=== PATIENT | female | born 1995 | race Caucasian/White ===

== ENCOUNTER → 2016-12-15 | Outpatient (CLI) | payer BC ==
--- NOTE | 2016-12-15 13:38 | CR ---
EXAMINATION: Cervical spine HISTORY: Pain COMPARISON: CT dated 03/25/2016 TECHNIQUE: AP and lateral views FINDINGS/IMPRESSION: The cervical spinal alignment appears normal and the vertebral body heights and disc spaces appear well-maintained. No fracture or acute osseous abnormality. The prevertebral soft tissues appear normal.
== END ==
LOC: MW.CHFP 09:48
PROVIDERS: ATTEND Physician Assistant
DX: M54.2 Cervicalgia (principal)
CPT/HCPCS: 36415; 72040; 72040-26; 85025; 85652

== ENCOUNTER → 2016-12-23 | Outpatient (CLI) | payer BC ==
--- NOTE | 2016-12-23 12:49 | MR ---
EXAMINATION: MR of the head without contrast. TECHNIQUE: Multiplanar multisequence imaging of the head without intravenous contrast. Diffusion génesis ghted sequences were performed. HISTORY: Allergic rhinitis. FINDINGS: The cerebral hemispheres and deep nuclei are without hemorrhage, mass, edema or atrophy. No evidenc e for restricted diffusion. No extraaxial collections or hemorrhage. 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 Ventricular system is of normal size and configuration without hydrocephalus. Brainstem and cerebel lum are without hemorrhage, mass, edema, gliosis or atrophy. Carotid basilar artery flow voids are intact. The otomastoid airspaces are clear. No internal auditory canal or cerebellopontine angle masses. T he paranasal sinuses are clear. Craniocervical junction is unremarkable. IMPRESSION: 1. No acute intracranial findings. 2. 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 3. No significant paranasal sinus disease.
== END ==
LOC: MW.MRI 08:33
PROVIDERS: ATTEND Anesthesiology
DX: J30.9 Allergic rhinitis, unspecified (principal); M79.1 Myalgia; G93.0 Cerebral cysts
CPT/HCPCS: 70551; 70551-26

== ENCOUNTER → 2017-02-26 | Outpatient (CLI) | payer BC | LOC: MW.CHFP 12:47 | PROVIDERS: ATTEND Student in an Organized Health Care Education/Training Program | DX: J02.9 Acute pharyngitis, unspecified (principal) | CPT/HCPCS: 87081; 87880 ==

== ENCOUNTER 2018-06-30 15:18 | Emergency (ER) | payer BC ==
[2018-06-30] MEDS ORDERED: Sodium Chloride 0.9% 10 ML Syringe FLUSH PRN (15:31)
[2018-06-30] MEDS ORDERED: Sodium Chloride 0.9% 2.5 ML Syringe FLUSH PRN (15:31)
--- NOTE | 2018-06-30 15:35 | EDM.PDOC ---
ED HPI GENERAL MEDICAL PROBLEM - General Chief Complaint: General Stated Complaint: SICK Time Seen by Provider: 06/30/18 15:34 Source of Information: Reports: Patient History Limitations: Reports: No Limitations - History of Present Illness INITIAL COMMENTS - FREE TEXT/NARRATIVE: HISTORY AND PHYSICAL: [] 23-year-old female presenting with not feeling well History of Present Illness: []Patient had a sore throat when she awakened today, feeling worse throughout the day went to a walk-in clinic She states that the strep test was negative. She has photophobia, headache, neck feels stiff. Review of Systems: As per history of present illness and below otherwise all systems reviewed and negative. Past medical history: As per history of present illness and as reviewed below otherwise noncontributory. Surgical history: As per history of present illness and as reviewed below otherwise noncontributory. Social history: No reported history of drug or alcohol abuse. Family history: As per history of present illness and as reviewed below otherwise noncontributory. Physical exam: Patient is having difficulty moving her chin to her chest or with examination she is relaxing and easily manipulated [id number] chest HEENT: Atraumatic, normocehpalic, pupils reactive, negative for conjunctival pallor or scleral icterus, mucous membranes moist, throat clear, neck supple, nontender, trachea midline. Lungs: Clear to auscultation, breath sounds equal bilaterally, chest non tender. Heart: S1S2, regular, negative for clicks, rubs, or JVD. Abdomen: Soft, nondistended, nontender. Negative for masses or hepatossplenmegaly. Negative for costovertebral tenderness. Pelvis: Stable nontender. Genitourinary: Deferred. Rectal: Deferred Extremities: Atraumatic, negative for cords or calf pain. Neurovascular unremarkable. Neuro: Awake, alert, oriented. Cranial nerves II through XII unremarkable. Cerebellum unremarkable. Motor and sensory unremarkable throughout. Exam nonfocal. Dr. Frank has kindly reevaluated this patient. Have discussed all the results of the laboratory values there is nothing that is remarkable. Patient does look improved since having the fluids Diagnostics: []CBC CMP lactate UA hCG and drug screen blood cultures Therapeutics: []1 L normal saline Morphine Zofran Impression: []Viral syndrome Plan: []Discharge Return to the emergency department should symptoms worsen Zofran ODT 3 times a day when necessary nausea Follow-up with your primary care provider in the next 3 days Definitive disposition and diagnosis as appropriate pending reevaluation and review of above. Onset: Today, Sudden Duration: Hour(s): Location: Reports: Head, Neck, Generalized Quality: Reports: Ache Severity: Moderate Improves with: Reports: None Worsens with: Reports: None Associated Symptoms: Reports: No Other Symptoms Bilateral Back Pain Score (Numeric/FACES): 10 - Related Data Allergies Allergy/AdvReac Type Severity Reaction Status Date / Time Iodine and Iodide Containing Allergy Severe Anaphylactic Verified 06/30/18 15:19 Produc Shock latex Allergy Itching Verified 06/30/18 15:19 Home Meds: Home Meds Dextroamphetamine/Amphetamine [Adderall 20 mg Tablet] 20 mg PO DAILY 08/08/14 [ History] Ondansetron [Zofran ODT] 4 mg PO Q6H PRN #12 tab.dis 06/30/18 [Rx] Past Medical History HEENT History: Reports: None Cardiovascular History: Reports: None Respiratory History: Reports: None Gastrointestinal History: Reports: None Genitourinary History: Reports: None CAT SCAN TECH History: Reports: None Musculoskeletal History: Reports: None Neurological History: Reports: None Psychiatric History: Reports: ADD Endocrine/Metabolic History: Reports: None Hematologic History: Reports: None Oncologic (Cancer) History: Reports: None Dermatologic History: Reports: None - Infectious Disease History Infectious Disease History: Reports: None - Past Surgical History HEENT Surgical History: Reports: Oral Surgery Social & Family History - Family History Family Medical History: Noncontributory - Tobacco Use Smoking Status *Q: Current Some Day Smoker Years of Tobacco use: 5 Packs/Tins Daily: 0.1 - Caffeine Use Caffeine Use: Reports: Energy Drinks - Recreational Drug Use Recreational Drug Use: No ED ROS GENERAL - Review of Systems Review Of Systems: ROS reveals no pertinent complaints other than HPI. ED EXAM, GENERAL - Physical Exam Exam: See Below (see dictation) Course - Vital Signs Last Recorded V/S: Last Vital Signs Temp 36.2 C 06/30/18 15:19 Pulse 142 H 06/30/18 15:19 Resp 21 H 06/30/18 15:19 BP 154/105 H 06/30/18 15:19 Pulse Ox 100 06/30/18 15:19 - Orders/Labs/Meds Orders: Active Orders 24 hr Category Date Time Status Chest 2V [CR] Stat Exams 06/30/18 15:32 Taken CULTURE BLOOD [BC] Stat Lab 06/30/18 15:52 Received CULTURE BLOOD [BC] Stat Lab 06/30/18 15:52 Received CULTURE STREP A CONFIRMATION [RM] Stat Lab 06/30/18 16:15 Results CULTURE URINE [RM] Stat Lab 06/30/18 17:00 Received STREP SCRN A RAPID W CULT CONF [RM] Stat Lab 06/30/18 16:15 Results [facility] [REF] Stat Lab 06/30/18 15:52 Received Ketorolac [Toradol] Med 06/30/18 17:20 Once 30 mg IVPUSH ONETIME ONE Sodium Chloride 0.9% [Saline Flush] Med 06/30/18 15:31 Active 10 ml FLUSH ASDIRECTED PRN Sodium Chloride 0.9% [Saline Flush] Med 06/30/18 15:31 Active 2.5 ml FLUSH ASDIRECTED PRN Blood Culture x2 Reflex Set [OM.PC] Stat Oth 06/30/18 15:31 Ordered Saline Lock Insert [OM.PC] Stat Oth 06/30/18 15:31 Ordered Medication Orders Sodium Chloride (Saline Flush) 10 ml FLUSH ASDIRECTED PRN PRN Reason: Keep Vein Open Last Admin: 06/30/18 16:00 Dose: 10 ml Sodium Chloride (Saline Flush) 2.5 ml FLUSH ASDIRECTED PRN PRN Reason: Keep Vein Open Last Admin: 06/30/18 16:00 Dose: 2.5 ml Labs: Laboratory Tests 06/30/18 06/30/18 06/30/18 Range/Units 15:52 15:52 15:52 WBC 11.09 H (4.0-11.0) K/uL RBC 4.45 (4.30-5.90) M/uL Hgb 14.2 (12.0-16.0) g/dL Hct 41.6 (36.0-46.0) % MCV 93.5 (80.0-98.0) fL MCH 31.9 (27.0-32.0) pg MCHC 34.1 (31.0-37.0) g/dL RDW Std Deviation 43.0 (28.0-62.0) fl RDW Coeff of Maricarmen 13 (11.0-15.0) % Plt Count 231 (150-400) K/uL MPV 10.60 (7.40-12.00) fL Neut % (Auto) 73.4 (48.0-80.0) % Lymph % (Auto) 17.7 (16.0-40.0) % [place] % (Auto) 7.8 (0.0-15.0) % Eos % (Auto) 0.7 (0.0-7.0) % Baso % (Auto) 0.4 (0.0-1.5) % Neut # (Auto) 8.1 H (1.4-5.7) K/uL Lymph # (Auto) 2.0 (0.6-2.4) K/uL [place] # (Auto) 0.9 H (0.0-0.8) K/uL Eos # (Auto) 0.1 (0.0-0.7) K/uL Baso # (Auto) 0.0 (0.0-0.1) K/uL Nucleated RBC % 0.0 /100WBC Nucleated RBCs # 0 K/uL Lactate (0.20-2.00) mmol/L Sodium 138 (136-145) mmol/L Potassium 3.4 L (3.5-5.1) mmol/L Chloride 101 (98-107) mmol/L Carbon Dioxide 27.7 (21.0-32.0) mmol/L BUN 8 (7.0-18.0) mg/dL Creatinine 0.9 (0.6-1.0) mg/dL Est Cr Clr Drug Dosing 89.45 mL/min Estimated GFR (MDRD) > 60.0 ml/min Glucose 104 (74-106) mg/dL Calcium 9.1 (8.5-10.1) mg/dL Total Bilirubin 0.5 (0.2-1.0) mg/dL AST 26 (15-37) IU/L ALT 33 (14-63) IU/L Alkaline Phosphatase 45 L (46-116) U/L Total Protein 7.5 (6.4-8.2) g/dL Albumin 4.0 (3.4-5.0) g/dL Globulin 3.5 (2.0-3.5) g/dL Albumin/Globulin Ratio 1.1 L (1.3-2.8) HCG, Quant mIU/mL Urine Color Urine Appearance Urine pH (5.0-8.0) Ur Specific [place] (1.001-1.035) Urine Protein (NEGATIVE) mg/dL Urine Glucose (UA) (NEGATIVE) mg/dL Urine Ketones (NEGATIVE) mg/dL Urine Occult Blood (NEGATIVE) Urine Nitrite (NEGATIVE) Urine Bilirubin (NEGATIVE) Urine Urobilinogen (<2.0) EU/dL Ur Leukocyte Esterase (NEGATIVE) Urine RBC (0-2/HPF) Urine WBC (0-5/HPF) Ur Epithelial Cells (NONE-FEW) Amorphous Sediment (NEGATIVE) Urine Bacteria (NEGATIVE) Urine Mucus (NONE-MOD) Monoscreen NEGATIVE (NEG) 06/30/18 06/30/18 06/30/18 Range/Units 15:52 15:52 17:00 WBC (4.0-11.0) K/uL RBC (4.30-5.90) M/uL Hgb (12.0-16.0) g/dL Hct (36.0-46.0) % MCV (80.0-98.0) fL MCH (27.0-32.0) pg MCHC (31.0-37.0) g/dL RDW Std Deviation (28.0-62.0) fl RDW Coeff of [place] (11.0-15.0) % Plt Count (150-400) K/uL MPV (7.40-12.00) fL Neut % (Auto) (48.0-80.0) % Lymph % (Auto) (16.0-40.0) % [place] % (Auto) (0.0-15.0) % Eos % (Auto) (0.0-7.0) % Baso % (Auto) (0.0-1.5) % Neut # (Auto) (1.4-5.7) K/uL Lymph # (Auto) (0.6-2.4) K/uL [place] # (Auto) (0.0-0.8) K/uL Eos # (Auto) (0.0-0.7) K/uL Baso # (Auto) (0.0-0.1) K/uL Nucleated RBC % /100WBC Nucleated RBCs # K/uL Lactate 0.7 (0.20-2.00) mmol/L Sodium (136-145) mmol/L Potassium (3.5-5.1) mmol/L Chloride (98-107) mmol/L Carbon Dioxide (21.0-32.0) mmol/L BUN (7.0-18.0) mg/dL Creatinine (0.6-1.0) mg/dL Est Cr Clr Drug Dosing mL/min Estimated GFR (MDRD) ml/min Glucose (74-106) mg/dL Calcium (8.5-10.1) mg/dL Total Bilirubin (0.2-1.0) mg/dL AST (15-37) IU/L ALT (14-63) IU/L Alkaline Phosphatase (46-116) U/L Total Protein (6.4-8.2) g/dL Albumin (3.4-5.0) g/dL Globulin (2.0-3.5) g/dL Albumin/Globulin Ratio (1.3-2.8) HCG, Quant < 1.0 mIU/mL Urine Color YELLOW Urine Appearance CLEAR Urine pH 7.0 (5.0-8.0) Ur Specific [place] 1.015 (1.001-1.035) Urine Protein NEGATIVE (NEGATIVE) mg/dL Urine Glucose (UA) NEGATIVE (NEGATIVE) mg/dL Urine Ketones NEGATIVE (NEGATIVE) mg/dL Urine Occult Blood NEGATIVE (NEGATIVE) Urine Nitrite NEGATIVE (NEGATIVE) Urine Bilirubin NEGATIVE (NEGATIVE) Urine Urobilinogen 0.2 (<2.0) EU/dL Ur Leukocyte Esterase NEGATIVE (NEGATIVE) Urine RBC 0-2 (0-2/HPF) Urine WBC 2-3 (0-5/HPF) Ur Epithelial Cells FEW (NONE-FEW) Amorphous Sediment FEW (NEGATIVE) Urine Bacteria FEW (NEGATIVE) Urine Mucus FEW (NONE-MOD) Monoscreen (NEG) Meds: Medications Generic Name Dose Route Start Last Admin Trade Name Freq PRN Reason Stop Dose Admin Sodium Chloride 10 ml 06/30/18 15:31 06/30/18 16:00 Saline Flush FLUSH 10 ml ASDIRECTED PRN Administration Keep Vein Open Sodium Chloride 2.5 ml 06/30/18 15:31 06/30/18 16:00 Saline Flush FLUSH 2.5 ml ASDIRECTED PRN Administration Keep Vein Open Discontinued Medications Generic Name Dose Route Start Last Admin Trade Name Freq PRN Reason Stop Dose Admin Sodium Chloride 1,000 mls @ 999 mls/hr 06/30/18 15:39 06/30/18 15:59 Normal Saline IV 06/30/18 16:39 999 mls/hr STAT ONE Administration Morphine Sulfate 2 mg 06/30/18 15:43 06/30/18 15:59 Morphine IVPUSH 06/30/18 15:44 2 mg ONETIME ONE Administration Ondansetron HCl 4 mg 06/30/18 15:43 06/30/18 15:59 Zofran IVPUSH 06/30/18 15:44 4 mg ONETIME ONE Administration Departure - Departure Time of Disposition: 17:22 Disposition: Home, Self-Care 01 Condition: Good Clinical Impression: Viral disease - Discharge Information Prescriptions: Ondansetron [Zofran ODT] 4 mg PO Q6H PRN #12 tab.dis PRN Reason: Nausea Instructions: Viral Illness, Adult Referrals: PCP,Unknown [Primary Care Provider] - Forms: ED Department Discharge Additional Instructions: The following information is given to patients seen in the emergency department who are being discharged to home. This information is to outline your options for follow-up care. We provide all patients seen in our emergency department with a follow-up referral. The need for follow-up, as well as the timing and circumstances, are variable depending upon the specifics of your emergency department visit. If you don't have a primary care physician on staff, we will provide you with a referral. We always advise you to contact your personal physician following an emergency department visit to inform them of the circumstance of the visit and for follow-up with them and/or the need for any referrals to a consulting specialist. The emergency department will also refer you to a specialist when appropriate. This referral assures that you have the opportunity for followup care with a specialist. All of these measure are taken in an effort to provide you with optimal care, which includes your followup. Under all circumstances we always encourage you to contact your private physician who remains a resource for coordinating your care. When calling for followup care, please make the office aware that this follow-up is from your recent emergency room visit. If for any reason you are refused follow-up, please contact the [facility] emergency department at and asked to speak to the emergency department charge nurse. You were given Toradol for pain Discharge Return to the emergency department should symptoms worsen Ricardo ODT 3 times a day when necessary nausea Follow-up with your primary care provider in the next 3 days - My Orders Last 24 Hours: My Active Orders 06/30/18 15:31 Sodium Chloride 0.9% [Saline Flush] 10 ml FLUSH ASDIRECTED PRN Sodium Chloride 0.9% [Saline Flush] 2.5 ml FLUSH ASDIRECTED PRN Blood Culture x2 Reflex Set [OM.PC] Stat Saline Lock Insert [OM.PC] Stat 06/30/18 15:32 Chest 2V [CR] Stat 06/30/18 15:52 CULTURE BLOOD [BC] Stat CULTURE BLOOD [BC] Stat [facility] [REF] Stat 06/30/18 16:15 CULTURE STREP A CONFIRMATION [RM] Stat STREP SCRN A RAPID W CULT CONF [RM] Stat 06/30/18 17:00 CULTURE URINE [RM] Stat 06/30/18 17:20 Ketorolac [Toradol] 30 mg IVPUSH ONETIME ONE - Assessment/Plan Last 24 Hours: My Active Orders 06/30/18 15:31 Sodium Chloride 0.9% [Saline Flush] 10 ml FLUSH ASDIRECTED PRN Sodium Chloride 0.9% [Saline Flush] 2.5 ml FLUSH ASDIRECTED PRN Blood Culture x2 Reflex Set [OM.PC] Stat Saline Lock Insert [OM.PC] Stat 06/30/18 15:32 Chest 2V [CR] Stat 06/30/18 15:52 CULTURE BLOOD [BC] Stat CULTURE BLOOD [BC] Stat [facility] [REF] Stat 06/30/18 16:15 CULTURE STREP A CONFIRMATION [RM] Stat STREP SCRN A RAPID W CULT CONF [RM] Stat 06/30/18 17:00 CULTURE URINE [RM] Stat 06/30/18 17:20 Ketorolac [Toradol] 30 mg IVPUSH ONETIME ONE
[2018-06-30] MEDS ORDERED: Sodium Chloride 0.9% 1,000 ML IV ONE (15:39)
[2018-06-30] MEDS ORDERED: Ondansetron 4 MG/2 ML SDV IVPUSH ONE (15:43)
[2018-06-30] MEDS ORDERED: Morphine 2 MG/ML Syringe IVPUSH ONE (15:43)
[2018-06-30 16:37] LABS: CHLORIDE,CL 101 mmol/L (98-107); SODIUM,NA 138 mmol/L (136-145)
[2018-06-30] MEDS ORDERED: Ketorolac 30 MG/ML SDV IVPUSH ONE (17:20)
[2018-06-30 18:32] VITALS: BP 135/91
--- NOTE | 2018-07-01 10:40 | CR ---
EXAM DATE: 06/30/18 PATIENT'S AGE: 23 Patient: CHASE ENAMORADO Facility: [place], [place] Site . Site : 1995 Study: XRay Chest [id number]/12/2018 4:43:09 PM Ordering Physician: Doctor Lewis Final Report: INDICATION: Cold symptoms TECHNIQUE: Chest 2 views. COMPARISON: None. FINDINGS: Cardiovascular and mediastinum: Heart size and vasculature are normal in caliber and appearance. Mediastinum is within normal limits. Lungs and pleural spaces: Lungs are clear. No sign of infiltrate or mass. No sign of pleural effusion. No pneumothorax. Bones and soft tissues: No significant findings. IMPRESSION: Unremarkable chest. Dictated by: Rafael Martin MD @ 06/30/2018 16:59:53 (Electronic Signature) Report Signed by Proxy. [facility]
== END 2018-06-30 17:41 | disposition home or self-care (01) ==
LOC: MW.ED 15:18
DX: B34.9 Viral infection, unspecified (principal); F17.210 Nicotine dependence, cigarettes, uncomplicated; Z91.040 Latex allergy status
CPT/HCPCS: 36415; 71046; 80053; 81001; 83605; 84702; 85025; 86308; 87040; 87081; 87086; 87880; 96361; 96374; 96375; 99284; J1885; J2270; J2405; J7040

== ENCOUNTER 2020-06-30 17:08 | Emergency (ER) | payer OTHER ==
[2020-06-30 17:25] VITALS: BP 142/93; PULSE 114
--- NOTE | 2020-06-30 18:24 | EDM.PDOC ---
ED HPI GENERAL MEDICAL PROBLEM - General Chief Complaint: Back Pain or Injury Stated Complaint: PAIN AND NUMBNESS/BACK Time Seen by Provider: 06/30/20 17:50 Source of Information: Reports: Patient - History of Present Illness INITIAL COMMENTS - FREE TEXT/NARRATIVE: History of present illness: 25-year-old female presenting with low back pain ongoing for the last week and now having numbness in the low back and groin/vagina for the last 2 days. She reports at first she felt she was not able to relax the urethral sphincter and passed urine and she was concerned she might have a UTI, however today she has now had loss of urine control and urine just dripping out. She had seen her PCP 1 week ago at the time the symptoms developed and had an MRI scheduled for 4 days from now, however as the numbness had progressed she was concerned and called her PCP who told her to come to the emergency department for evaluation. She is here requesting an MRI. She has been able to walk and she was able to dr melany herself here. She has not had any loss of bowel control. She does report that she was rockclimbing and she hit her hip about 2 weeks ago, however the back pain did not start until 5 days later and the numbness has only started in the last 2 days and she did not think it was related. Review of systems: As per history of present illness and below otherwise all systems reviewed and negative. Past medical history: As per history of present illness and as reviewed below otherwise noncontributory. Ankylosing spondylitis Surgical history: As per history of present illness and as reviewed below otherwise noncontributory. Knee surgery Social history: No reported history of drug or alcohol abuse. Rare tobacco and alcohol use, nothing daily Family history: As per history of present illness and as reviewed below otherwise noncontributory. Physical exam: GEN: no acute distress, well appearing HEENT: Atraumatic, normocephalic, mucous membranes moist, Neck: supple, nontender, trachea midline. Lungs: No respiratory distress. Heart: RRR Abdomen: Soft, nondistended, nontender. : declined pelvic and rectal exams Rectal exam: Patient refused Back: nontender in the T and L-spine, no step-offs. Straight leg test negative. She has some very mild tenderness over the low sacrum. She reports some decreased sensation over both buttocks and posterior thighs. Extremities: Atraumatic. Neurovascularly intact. Neuro: Awake, alert, oriented. Neuro Exam nonfocal. SHe is reporting numbness in the groin, however on objective testing she has equal and intact sensation throughout the medial, lateral, and anterior thighs. She did report some numbness in the posterior thighs and buttocks. She does report that she has chronic decreased sensation over the right leg below the knee due to a prior injury and surgery and this has not changed. She refused rectal exam which we discussed was to evaluate for rectal tone. Skin: warm, dry, no lesions Psych: Appears anxious Diagnostics: MRI recommended but not available at this facility - I recommended transfer to be arranged from ED here to ED at [facility] with MRI and neurosurgery capability. The patient declined. Therapeutics: MDM: Impression: Plan: Definitive disposition and diagnosis as appropriate pending reevaluation and review of above. lower back Pain Score (Numeric/FACES): 4 - Related Data Allergies Allergy/AdvReac Type Severity Reaction Status Date / Time Iodine and Iodide Containing Allergy Severe Anaphylactic Verified 06/30/20 17:19 Produc Shock latex Allergy Itching Verified 06/30/20 17:19 tyrel Allergy Itching Uncoded 06/30/20 17:19 Home Meds: Home Meds Dextroamphetamine/Amphetamine [Adderall 20 mg Tablet] 30 mg PO DAILY 08/08/14 [History] Ethinyl Estradiol/Etonogestrel [Nuvaring Vaginal Ring] 06/30/20 [History] Meloxicam 15 mg PO DAILY 06/30/20 [History] levoFLOXacin [Levaquin] 500 mg PO BID 06/30/20 [History] Past Medical History HEENT History: Reports: None Cardiovascular History: Reports: None Respiratory History: Reports: None Gastrointestinal History: Reports: None Genitourinary History: Reports: None 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 Musculoskeletal History: Reports: None Neurological History: Reports: None Psychiatric History: Reports: ADD Endocrine/Metabolic History: Reports: None Hematologic History: Reports: None Oncologic (Cancer) History: Reports: None Dermatologic History: Reports: None - Infectious Disease History Infectious Disease History: Reports: None - Past Surgical History HEENT Surgical History: Reports: Naso-Sinus Surgery, Oral Surgery Musculoskeletal Surgical History: Reports: Other (See Below) Other Musculoskeletal Surgeries/Procedures:: Achilles, Right Ankle Social & Family History - Family History Family Medical History: Noncontributory - Tobacco Use Smoking Status *Q: Current Some Day Smoker Years of Tobacco use: 5 Packs/Tins Daily: 0 - Caffeine Use Caffeine Use: Reports: Energy Drinks - Recreational Drug Use Recreational Drug Use: No ED ROS GENERAL - Review of Systems Review Of Systems: See Below (see HPI) ED EXAM,LOWER BACK PAIN/INJURY - Physical Exam Exam: See Below (See HPI) Course - Vital Signs Text/Narrative:: Patient with subjective numbness of the groin and with mild objective numbness of the posterior buttock area though refused rectal exam to evaluate for tone. Differential diagnosis includes cauda equina though less likely based on her neurologic exam here today. Discussed with patient recommendation for MRI, however no MRI available at this time at the hospital, this was confirmed with the radiology department that reports there is no nitriles lab technician in the hospital or on-call to be able to obtain MRI. Therefore I discussed with the patient the need for transfer to obtain MRI. I discussed my recommendation for ambulance transfer to nearest possible facility with MRI and neurosurgical capabilities which is [facility]. However patient declined hospital arranged transfer, she does not want to go in an ambulance and prefers instead to have her mother drive her. At first she reported that she preferred to drive herself, however I discussed that with the patient she must absolutely not drive herself and instead if she refuses ambulance transfer, she must have someone else drive her. She is not yet certain if she will go to [place] or [place]. I offered to call either ED to discuss with ED physician to alert them and confirm MRI availability. The patient did eventually agree to go to nearest facility, [place] and therefore I discussed the case with ED physician there. Last Recorded V/S: Last Vital Signs Temp 97.2 F 06/30/20 17:15 Pulse 114 H 06/30/20 17:15 Resp 16 06/30/20 17:15 BP 142/93 H 06/30/20 17:15 Pulse Ox 99 06/30/20 17:15 - Re-Assessments/Exams Free Text/Narrative Re-Assessment/Exam: 06/30/20 18:32 And has now decided she will go to [facility] in her own private vehicle with her mother driving her. Therefore case was discussed with the ER physician at [facility]. Discussed with Dr. Zuluaga, emergency physician who agrees with the plan and will keep an eye out for the patient whenever she arrives. Departure - Departure Time of Disposition: 18:23 Disposition: Against Medical Advice 07 Clinical Impression: Back pain, Back pain associated with peripheral numbness - Discharge Information Instructions: Acute Back Pain, Adult Referrals: Nini Ibanez PA [Primary Care Provider] - Forms: ED Department Discharge Additional Instructions: Go directly to the emergency department of whichever hospital you prefer unless you change your mind and prefer that we transfer you directly by ambulance as we had recommended. If you do change your mind please return here immediately and we will arrange transfer for you. Sepsis Event Note (ED) - Evaluation Sepsis Screening Result: No Definite Risk
== END 2020-06-30 18:50 | disposition left against medical advice (07) ==
LOC: MW.ED 17:08
DX: M54.5 Low back pain (principal); R20.0 Anesthesia of skin; F98.8 Other specified behavioral and emotional disorders with onset usually occurring in childhood and adolescence; F17.210 Nicotine dependence, cigarettes, uncomplicated; Z79.899 Other long term (current) drug therapy; Z91.048 Other nonmedicinal substance allergy status; Z91.040 Latex allergy status; Z91.018 Allergy to other foods
CPT/HCPCS: 99283; 99284

== ENCOUNTER 2021-07-16 20:26 | Emergency (ER) | payer OTHER ==
[2021-07-16] MEDS ORDERED: Ondansetron 4 MG/2 ML SDV IVPUSH ONE (21:57)
[2021-07-16] MEDS ORDERED: Sodium Chloride 0.9% 10 ML Syringe FLUSH PRN (21:57)
[2021-07-16] MEDS ORDERED: Sodium Chloride 0.9% 1,000 ML IV ONE (21:57)
[2021-07-16] MEDS ORDERED: Sodium Chloride 0.9% 2.5 ML Syringe FLUSH PRN (21:57)
[2021-07-16] MEDS ORDERED: Ketorolac 15 MG/ML SDV IVPUSH ONE (21:57)
[2021-07-16 22:46] LABS: BLOOD UREA NITROGEN,BUN 15 mg/dL (7.0-18.0); CARBON DIOXIDE,CO2 30.2 mmol/L (21.0-32.0); CHLORIDE,CL 103 mmol/L (98-107); GLUCOSE RANDOM 103 mg/dL (74-106); POTASSIUM,K 3.9 mmol/L (3.5-5.1); SODIUM,NA 140 mmol/L (136-145)
--- NOTE | 2021-07-16 23:09 | CR ---
HISTORY: Cough for 20 days. COMPARISON: Chest two views from 06/30/2018 FINDINGS: A portable erect AP view of the chest was obtained at 22 27 hours. The lungs remain clear. No focal or diffuse infiltrates are present. The heart remains normal in size. The mediastinum is normal in appearance. There has been resection of the right distal clavicle. A suture anchor is seen in the right humeral head. Again seen is minimal scoliosis of the inferior thoracic spine convex towards the left. IMPRESSION: No active disease seen in the chest. Dictated by Julian Magdaleno MD @ 07/16/2021 11:09:33 PM (Electronically Signed)
[2021-07-16 23:20] VITALS: BP 114/64; PULSE 79
--- NOTE | 2021-07-16 23:25 | EDM.PDOC ---
ED HPI GENERAL MEDICAL PROBLEM - General Chief Complaint: Gastrointestinal Problem Stated Complaint: SICK, DIARRHEA Time Seen by Provider: 07/16/21 21:46 - History of Present Illness INITIAL COMMENTS - FREE TEXT/NARRATIVE: HISTORY AND PHYSICAL: History of present illness: This is a 26-year-old female who presents ER today secondary to generalized malaise, body aches, nausea, decreased p.o. intake, feeling dehydrated, diarrhea . Patient reports that she been feeling sick for 2 to 3 weeks. Patient reports that she has been seen by her primary care physician as well as by the urgent care center. She was recently started on Augmentin, steroids, inhalers for her symptoms. She reports shortly after starting the Augmentin she started having diarrhea and has not been able to tolerate p.o. solids as well as normal. Patient denies any recent fevers, shakes, chills. Patient reports that upper respiratory infection symptoms including cough and shortness of breath and chest discomfort with inspiration. Patient denies any melena or bright red blood per rectum. Patient reports that she does have occasional blood streaked stool since she started having diarrhea. Review of systems: As per history of present illness and below otherwise all systems reviewed and negative. Past medical history: As per history of present illness and as reviewed below otherwise noncontributory. Surgical history: As per history of present illness and as reviewed below otherwise noncontributory. Social history: No reported history of drug abuse. Family history: As per history of present illness and as reviewed below otherwise noncontr ibutory. Physical exam: This patient was seen and evaluated during the 2019 SARS-CoV-2 novel coronavirus pandemic period. Community viral transmission is ongoing at time of this encounter and the emergency department is operating under pandemic response procedures. Constitutional: Patient is oriented to person, place, and time. Appears well- developed and well-nourished. No distress. HEENT: Moist mucous membranes Head: Normocephalic and atraumatic Eyes: Right eye exhibits no discharge. Left eye exhibits no discharge. No scleral icterus Neck: Normal range of motion. No tracheal deviation present. Cardiovascular: Normal rate and regular rhythm. Pulmonary: Effort normal, no respiratory distress. Abd: Soft, nondistended, no rebound/guarding, no psoas or obturator signs, no tenderness at Mcberney's point, no Foster's sign. Pt does not present with an exam that would be consistent with an acute surgical abdomen at this time. Mild suprapubic tenderness to palpation Musculoskeletal: Normal range of motion Neurologic: Alert and oriented to person, place and time. Skin: [place], warm and dry. Psychiatric: Normal mood and affect. Behavior is normal. Judgment and thought content normal. Nursing note and vital signs have been reviewed Diagnostics: CBC, CMP within normal limits. Chest Xray: Normal cardiac silhouette No infiltrates or effusions identified. No PTX No evidence of acute bony fracture. As interpreted by ER MD: Flavia Caraballo: Ricardo SAXENA Assessment and plan: 26-year-old female who presents ER today with nausea, decreased p.o. intake, dehydration, diarrhea that are most likely secondary to her being on Augmentin. I have discussed with the patient that her symptoms appear most consistent with a viral infection and that I would recommend that she stop her Augmentin. She should continue her prednisone and inhalers as prescribed by her doctor but I think the Augmentin is likely causing her more harm than good at this point. Patient will be discharged home with Ricardo to assist her with her nausea and encouraged to increase her fluid intake. At this time, the patient feels much improved after receiving the IV fluids and the nausea medicines. I feel that the patient is stable for further outpatient evaluation of her symptoms. Reassessment at the time of disposition demonstrates that the patient is in no acute distress. The patient has remained stable throughout the entire ED visit and is without objective evidence for acute process requiring urgent intervention or hospitalization. The patient is stable for discharge, counseling is provided as documented above, discussed symptomatic treatment and specific conditions for return. I have spoken with the patient/caregiver and discussed todays findings, in addition to providing specific details for the plan of care. Questions are answered and there is agreement with the plan. Definitive disposition and diagnosis as appropriate pending reevaluation and review of above. Abdomen Pain Score (Numeric/FACES): 7 - Related Data Allergies Allergy/AdvReac Type Severity Reaction Status Date / Time Iodine and Iodide Containing Allergy Severe Anaphylactic Verified 07/16/21 21:41 Produc Shock latex Allergy Itching Verified 07/16/21 21:41 tyrel Allergy Itching Uncoded 07/16/21 21:41 Home Meds: Home Meds Dextroamphetamine/Amphetamine [Adderall 20 mg Tablet] 30 mg PO DAILY 08/08/14 [History] Ethinyl Estradiol/Etonogestrel [Nuvaring Vaginal Ring] 06/30/20 [History] Meloxicam 15 mg PO DAILY 06/30/20 [History] levoFLOXacin [Levaquin] 500 mg PO BID 06/30/20 [History] Ondansetron [Zofran ODT] 4 mg PO Q6H PRN #12 tab.dis 07/16/21 [Rx] Past Medical History HEENT History: Reports: None Cardiovascular History: Reports: None Respiratory History: Reports: None Gastrointestinal History: Reports: None Genitourinary History: Reports: None ULTRASONIC SOLDERER History: Reports: None Musculoskeletal History: Reports: None Neurological History: Reports: None Psychiatric History: Reports: ADD Endocrine/Metabolic History: Reports: None Insulin Pump Model and Brace Maker: None Hematologic History: Reports: None Immunologic History: Reports: None Oncologic (Cancer) History: Reports: None Dermatologic History: Reports: None - Infectious Disease History Infectious Disease History: Reports: None - Past Surgical History HEENT Surgical History: Reports: Naso-Sinus Surgery, Oral Surgery Musculoskeletal Surgical History: Reports: Other (See Below) Other Musculoskeletal Surgeries/Procedures:: Achilles, Right Ankle Social & Family History - Family History Family Medical History: No Pertinent Family History - Caffeine Use Caffeine Use: Reports: Coffee - Recreational Drug Use Recreational Drug Use: No ED ROS GENERAL - Review of Systems Review Of Systems: See Below ED EXAM, GENERAL - Physical Exam Exam: See Below Course - Vital Signs Last Recorded V/S: Last Vital Signs Temp 96.8 F L 07/16/21 21:42 Pulse 79 07/16/21 23:19 Resp 18 07/16/21 23:19 BP 114/64 07/16/21 23:19 Pulse Ox 98 07/16/21 23:19 - Orders/Labs/Meds Orders: Active Orders 24 hr Category Date Time Status Sodium Chloride 0.9% [Saline Flush] Med 07/16/21 21:57 Active 10 ml FLUSH ASDIRECTED PRN Sodium Chloride 0.9% [Saline Flush] Med 07/16/21 21:57 Active 2.5 ml FLUSH ASDIRECTED PRN Saline Lock Insert [OM.PC] Stat Oth 07/16/21 21:57 Ordered Medication Orders Sodium Chloride (Sodium Chloride 0.9% 10 Ml Syringe) 10 ml FLUSH ASDIRECTED PRN PRN Reason: Keep Vein Open Last Admin: 07/16/21 22:17 Dose: 10 ml Documented by: CELINE Sodium Chloride (Sodium Chloride 0.9% 2.5 Ml Syringe) 2.5 ml FLUSH ASDIRECTED PRN PRN Reason: Keep Vein Open Last Admin: 07/16/21 22:17 Dose: 2.5 ml Documented by: CELINE Labs: Laboratory Tests 07/16/21 07/16/21 Range/Units 22:13 22:13 WBC 8.33 (4.0-11.0) K/uL RBC 4.27 L (4.30-5.90) M/uL Hgb 13.6 (12.0-16.0) g/dL Hct 40.3 (36.0-46.0) % MCV 94.4 (80.0-98.0) fL MCH 31.9 (27.0-32.0) pg MCHC 33.7 (31.0-37.0) g/dL RDW Std Deviation 42.7 (28.0-62.0) fl RDW Coeff of Maricarmen 13 (11.0-15.0) % Plt Count 304 (150-400) K/uL MPV 10.50 (7.40-12.00) fL Neut % (Auto) 43.9 L (48.0-80.0) % Lymph % (Auto) 42.1 H (16.0-40.0) % Bee % (Auto) 10.0 (0.0-15.0) % Eos % (Auto) 3.2 (0.0-7.0) % Baso % (Auto) 0.8 (0.0-1.5) % Neut # (Auto) 3.7 (1.4-5.7) K/uL Lymph # (Auto) 3.5 H (0.6-2.4) K/uL Bee # (Auto) 0.8 (0.0-0.8) K/uL Eos # (Auto) 0.3 (0.0-0.7) K/uL Baso # (Auto) 0.1 (0.0-0.1) K/uL Nucleated RBC % 0.0 /100WBC Nucleated RBCs # 0 K/uL Sodium 140 (136-145) mmol/L Potassium 3.9 (3.5-5.1) mmol/L Chloride 103 (98-107) mmol/L Carbon Dioxide 30.2 (21.0-32.0) mmol/L BUN 15 (7.0-18.0) mg/dL Creatinine 0.9 (0.6-1.0) mg/dL Est Cr Clr Drug Dosing 87.12 mL/min Estimated GFR (MDRD) > 60.0 ml/min Glucose 103 (74-106) mg/dL Calcium 8.2 L (8.5-10.1) mg/dL Total Bilirubin 0.2 (0.2-1.0) mg/dL AST 8 L (15-37) IU/L ALT 31 (14-63) IU/L Alkaline Phosphatase 40 L (46-116) U/L Total Protein 7.0 (6.4-8.2) g/dL Albumin 3.4 (3.4-5.0) g/dL Globulin 3.6 (2.6-4.0) g/dL Albumin/Globulin Ratio 0.9 (0.9-1.6) Meds: Medications Generic Name Dose Route Start Last Admin Trade Name Freq PRN Reason Stop Dose Admin Sodium Chloride 10 ml 07/16/21 21:57 07/16/21 22:17 Sodium Chloride 0.9% 10 Ml Syringe FLUSH 10 ml ASDIRECTED PRN Administration Keep Vein Open Sodium Chloride 2.5 ml 07/16/21 21:57 07/16/21 22:17 Sodium Chloride 0.9% 2.5 Ml Syringe FLUSH 2.5 ml ASDIRECTED PRN Administration Keep Vein Open Discontinued Medications Generic Name Dose Route Start Last Admin Trade Name Freq PRN Reason Stop Dose Admin Sodium Chloride 1,000 mls @ 999 mls/hr 07/16/21 21:57 07/16/21 22:15 Normal Saline IV 07/16/21 22:57 999 mls/hr .Bolus ONE Administration Ketorolac Tromethamine 15 mg 07/16/21 21:57 07/16/21 22:16 Ketorolac 15 Mg/Ml Sdv IVPUSH 07/16/21 21:58 15 mg ONETIME ONE Administration Ondansetron HCl 4 mg 07/16/21 21:57 07/16/21 22:16 Ondansetron 4 Mg/2 Ml Sdv IVPUSH 07/16/21 21:58 4 mg ONETIME ONE Administration Departure - Departure Time of Disposition: 23:23 Disposition: Home, Self-Care 01 Condition: Good Clinical Impression: Gastroenteritis, Dehydration, Antibiotic-associated diarrhea - Discharge Information Instructions: Dehydration, Adult, [id number], Viral Gastroenteritis, Adult, [id number], Food Choices to Help Relieve Diarrhea, Adult Referrals: PCP,None [Primary Care Provider] - Additional Instructions: Your seen and evaluated in ER today secondary to dehydration and diarrhea. I think the diarrhea is most likely secondary to the antibiotic that you are currently taking. Your chest x-ray looks normal so I do not think that the antibiotic is giving you any significant benefit. I think that the detriment of the antibiotic at this point would favor they should stop the antibiotic as I believe this is most likely causing the diarrhea which is resulting in your dehydration. Please make an appointment to follow-up with your family doctor in the next 2 to 3 days for reevaluation. You will be given a prescription for Zofran to help you with your nausea. The following information is given to patients seen in the emergency department who are being discharged to home. This information is to outline your options for follow-up care. We provide all patients seen in our emergency department with a follow-up referral. The need for follow-up, as well as the timing and circumstances, are variable depending upon the specifics of your emergency department visit. If you don't have a primary care physician on staff, we will provide you with a referral. We always advise you to contact your personal physician following an emergency department visit to inform them of the circumstance of the visit and for follow-up with them and/or the need for any referrals to a consulting specialist. The emergency department will also refer you to a specialist when appropriate. This referral assures that you have the opportunity for follow-up care with a specialist. All of these measure are taken in an effort to provide you with optimal care, which includes your follow-up. Under all circumstances we always encourage you to contact your private physician who remains a resource for coordinating your care. When calling for follow-up care, please make the office aware that this follow-up is from your recent emergency room visit. If for any reason you are refused follow-up, please contact the Emergency Department at and asked to speak to the emergency department charge nurse. [facility] [address] [place] [address] [facility] [address] [place] [address] Sepsis Event Note (ED) - Focused Exam Vital Signs: Vital Signs Temp Pulse Resp BP Pulse Ox 07/16/21 23:19 79 18 114/64 98 07/16/21 21:42 96.8 F L 104 H 18 121/78 98 - My Orders Last 24 Hours: My Active Orders 07/16/21 21:57 Sodium Chloride 0.9% [Saline Flush] 10 ml FLUSH ASDIRECTED PRN Sodium Chloride 0.9% [Saline Flush] 2.5 ml FLUSH ASDIRECTED PRN Saline Lock Insert [OM.PC] Stat - Assessment/Plan Last 24 Hours: My Active Orders 07/16/21 21:57 Sodium Chloride 0.9% [Saline Flush] 10 ml FLUSH ASDIRECTED PRN Sodium Chloride 0.9% [Saline Flush] 2.5 ml FLUSH ASDIRECTED PRN Saline Lock Insert [OM.PC] Stat
== END 2021-07-16 23:40 | disposition home or self-care (01) ==
LOC: MW.ED 20:26
DX: K52.9 Noninfective gastroenteritis and colitis, unspecified (principal); E86.0 Dehydration; Z91.040 Latex allergy status; Z91.048 Other nonmedicinal substance allergy status; Z88.8 Allergy status to other drugs, medicaments and biological substances
CPT/HCPCS: 36415; 71045; 80053; 85025; 96374; 96375; 99284; J1885; J2405; J7030

== ENCOUNTER 2025-04-04 17:11 | Emergency (ER) | payer OTHER ==
[2025-04-04] MEDS: Sodium Chloride 0.9% 1,000 ML IV ONE (17:54)
[2025-04-04 17:55] LABS: BASOPHILS ABSOLUTE AUTO 0.07 K/uL (0.00-0.20); BASOPHILS PERCENT AUTO 0.7 % (0.0-1.0); EOSINOPHILS ABSOLUTE AUTO 0.08 K/uL (0.00-0.45); EOSINOPHILS PERCENT AUTO 0.8 % (0.0-6.0); HEMATOCRIT 43.3 % (37.0-47.0); HEMOGLOBIN 14.3 g/dL (12.0-16.0); IMMATURE GRAN ABSOLUTE AUTO 0.02 K/uL (0.00-0.05); IMMATURE GRAN PERCENT AUTO 0.2 % (0.0-0.4); LYMPHOCYTES ABSOLUTE AUTO 2.87 K/uL (1.00-4.80); LYMPHOCYTES PERCENT AUTO 28.5 % (24.0-44.0); MEAN CORPUSCULAR HEMOGLOBIN 31.2 pg (28.0-32.0); MEAN CORPUSCULAR VOLUME 94.5 fL (83.0-99.0); MEAN PLATELET VOLUME 10.2 fL (9.4-12.3); MONOCYTES ABSOLUTE AUTO 0.53 K/uL (0.00-0.80); MONOCYTES PERCENT AUTO 5.3 % (0.0-8.0); NEUTROPHILS ABSOLUTE AUTO 6.49 K/uL (1.80-7.70); NEUTROPHILS PERCENT AUTO 64.5 % (41.0-71.0); PLATELET COUNT,PLT 281 K/uL (150-400); RED BLOOD CELL COUNT 4.58 M/uL (4.10-5.30); WHITE BLOOD CELL COUNT,WBC 10.06 K/uL (3.9-11.3)
[2025-04-04 18:38] LABS: ALBUMIN 3.7 g/dL (3.4-5.0); BILIRUBIN TOTAL 0.3 mg/dL (0.2-1.0); CALCIUM 8.9 mg/dL (8.5-10.1); CARBON DIOXIDE,CO2 25.7 mmol/L (21.0-32.0); EST CRCL DRUG DOSING (CG) 79.27 mL/min; POTASSIUM,K 3.6 mmol/L (3.5-5.1); PROTEIN TOTAL,TP 7.4 g/dL (6.4-8.2)
[2025-04-04] MEDS: Ketorolac 30 MG/ML SDV IVPUSH ONE (19:30)
[2025-04-04] MEDS: Metoclopramide 10 MG/2 ML SDV IVPUSH ONE (19:32)
[2025-04-04] MEDS: diphenhydrAMINE 50 MG/ML SDV IVPUSH ONE (19:35)
[2025-04-04 21:04] VITALS: BP 123/77; PULSE 77
== END 2025-04-04 21:03 | disposition left against medical advice (07) ==
LOC: MW.ED 17:11
DX: S09.90XA Unspecified injury of head, initial encounter (principal); F17.210 Nicotine dependence, cigarettes, uncomplicated; Z75.3 Unavailability and inaccessibility of health-care facilities; Z91.041 Radiographic dye allergy status; Z91.040 Latex allergy status; Z91.018 Allergy to other foods; Z79.899 Other long term (current) drug therapy; Z53.20 Procedure and treatment not carried out because of patient's decision for unspecified reasons; W18.2XXA Fall in (into) shower or empty bathtub, initial encounter; Y93.89 Activity, other specified
CPT/HCPCS: 36415; 70450; 70486; 72125; 80053; 84703; 85025; 96361; 96374; 96375; 99284; J1200; J1885; J2765; J7030; 99283

== ENCOUNTER 2025-04-05 08:51 | Emergency (ER) | payer OTHER ==
[2025-04-05] MEDS ORDERED: Sodium Chloride 0.9% 20 ML SDV IV PRN (09:08)
[2025-04-05] MEDS ORDERED: Sodium Chloride 0.9% 2.5 ML Syringe FLUSH PRN (09:08)
[2025-04-05] MEDS ORDERED: Sodium Chloride 0.9% 10 ML Syringe FLUSH PRN (09:08)
[2025-04-05 09:29] LABS: BASOPHILS ABSOLUTE AUTO 0.06 K/uL (0.00-0.20); BASOPHILS PERCENT AUTO 0.9 % (0.0-1.0); EOSINOPHILS ABSOLUTE AUTO 0.13 K/uL (0.00-0.45); HEMATOCRIT 37.1 % (37.0-47.0); HEMOGLOBIN 12.6 g/dL (12.0-16.0); IMMATURE GRAN ABSOLUTE AUTO 0.01 K/uL (0.00-0.05); IMMATURE GRAN PERCENT AUTO 0.2 % (0.0-0.4); LYMPHOCYTES ABSOLUTE AUTO 1.82 K/uL (1.00-4.80); LYMPHOCYTES PERCENT AUTO 27.9 % (24.0-44.0); MEAN CORPUSCULAR HEMOGLOBIN 32.8 pg (28.0-32.0); MEAN CORPUSCULAR VOLUME 96.6 fL (83.0-99.0); MEAN PLATELET VOLUME 10.2 fL (9.4-12.3); MONOCYTES ABSOLUTE AUTO 0.51 K/uL (0.00-0.80); MONOCYTES PERCENT AUTO 7.8 % (0.0-8.0); NEUTROPHILS PERCENT AUTO 61.2 % (41.0-71.0); PLATELET COUNT,PLT 230 K/uL (150-400); RED BLOOD CELL COUNT 3.84 M/uL (4.10-5.30); WHITE BLOOD CELL COUNT,WBC 6.53 K/uL (3.9-11.3)
[2025-04-05 09:58] LABS: A/G RATIO 0.9 (0.9-1.6); ALANINE AMINOTRANSFERASE,ALT 28 IU/L (14-63); ALKALINE PHOSPHATASE 35 U/L (46-116); ASPARTATE AMNIOTRANSFERASE,AST 20 IU/L (15-37); BILIRUBIN TOTAL 0.4 mg/dL (0.2-1.0); BLOOD UREA NITROGEN,BUN 14 mg/dL (7.0-18.0); C-REACTIVE PROTEIN 0.61 mg/dL (<0.3); CALCIUM 8.3 mg/dL (8.5-10.1); CARBON DIOXIDE,CO2 24.8 mmol/L (21.0-32.0); CHLORIDE,CL 106 mmol/L (98-107); CREATININE 1.1 mg/dL (0.6-1.0); GLUCOSE RANDOM 89 mg/dL (74-106); MAGNESIUM 1.8 mg/dL (1.8-2.4); POTASSIUM,K 3.8 mmol/L (3.5-5.1); PROTEIN TOTAL,TP 6.2 g/dL (6.4-8.2); SODIUM,NA 140 mmol/L (136-145)
[2025-04-05 09:59] LABS: ESTIMATED GFR 69 mL/min (>60)
[2025-04-05] MEDS: Gadoteridol 279.3 MG/ML 20 ML SDV IVPUSH ONE (11:03)
[2025-04-05 14:46] VITALS: BP 115/79; PULSE 70
== END 2025-04-05 15:09 | disposition home or self-care (01) ==
LOC: MW.ED 08:51
DX: G51.0 Bell's palsy (principal); Z91.041 Radiographic dye allergy status; Z91.040 Latex allergy status; Z91.018 Allergy to other foods; Z79.899 Other long term (current) drug therapy
CPT/HCPCS: 36415; 70544; 70544-26; 70549; 70549-26; 70553; 70553-26; 80053; 83735; 84703; 85025; 85652; 86140; 86618; 99283; 99285; A9579